=== PATIENT | female | born 1955 | race Native Hawaiian/Other Pacific Islander ===

== ENCOUNTER 2017-05-12 06:23 | Outpatient (CLI) | payer BC ==
[2017-05-12 07:05] LABS: PLATELET COUNT 242 K/uL (152-353)
[2017-05-12 09:11] LABS: POTASSIUM 3.9 mmol/L (3.6-5.2); SODIUM 137 mmol/L (136-145)
== END 2017-05-12 07:25 | disposition home or self-care (01) ==
LOC: LABW 06:23
PROVIDERS: Physician Assistant
DX: E78.4 Other hyperlipidemia (principal); I10 Essential (primary) hypertension
CPT/HCPCS: 36415; 80053; 80061; 83036; 84439; 84443; 85027

== ENCOUNTER 2017-07-26 15:42 | Outpatient (CLI) | payer BC | END 2017-07-26 19:01 | disposition home or self-care (01) | LOC: MAMMO 15:42 | DX: Z12.31 Encounter for screening mammogram for malignant neoplasm of breast (principal) ==

== ENCOUNTER 2018-09-19 06:18 | Outpatient (CLI) | payer BC ==
[2018-09-19 06:44] LABS: PLATELET COUNT 242 K/uL (152-353)
[2018-09-19 07:04] LABS: POTASSIUM 4.2 mmol/L (3.6-5.2)
== END 2018-09-19 20:25 | disposition home or self-care (01) ==
LOC: LABW 06:18
PROVIDERS: Physician Assistant
DX: E78.5 Hyperlipidemia, unspecified (principal); I10 Essential (primary) hypertension
CPT/HCPCS: 36415; 80053; 80061; 82306; 83036; 84439; 84443; 85027

== ENCOUNTER 2019-10-23 14:07 | Outpatient (CLI) | payer BC | END 2019-10-23 22:36 | disposition home or self-care (01) | LOC: MAMMO 14:07 | DX: Z12.31 Encounter for screening mammogram for malignant neoplasm of breast (principal) ==

== ENCOUNTER 2019-11-30 15:43 | Outpatient (CLI) | payer BC | END 2019-11-30 19:39 | disposition home or self-care (01) | LOC: RESP 15:43 | DX: R06.02 Shortness of breath (principal); I10 Essential (primary) hypertension | CPT/HCPCS: 93306 ==

== ENCOUNTER 2019-12-11 05:58 | Outpatient (CLI) | payer BC ==
[2019-12-11 06:28] LABS: PLATELET COUNT 274 K/uL (152-353)
[2019-12-11 06:47] LABS: POTASSIUM 3.8 mmol/L (3.6-5.2)
== END 2019-12-11 19:48 | disposition home or self-care (01) ==
LOC: LABW 05:58
PROVIDERS: Internal Medicine
DX: E78.5 Hyperlipidemia, unspecified (principal); R79.89 Other specified abnormal findings of blood chemistry; I10 Essential (primary) hypertension
CPT/HCPCS: 36415; 80053; 80061; 81000; 82306; 84439; 84443; 85027

== ENCOUNTER 2020-10-24 06:06 | Outpatient (CLI) | payer BC ==
[2020-10-24 06:57] LABS: PLATELET COUNT 269 K/uL (152-353)
== END 2020-10-24 21:07 | disposition home or self-care (01) ==
LOC: LAB 06:06
PROVIDERS: ATTEND Internal Medicine
DX: I10 Essential (primary) hypertension (principal); E78.5 Hyperlipidemia, unspecified; R79.89 Other specified abnormal findings of blood chemistry
CPT/HCPCS: 36415; 80053; 80061; 81000; 82306; 84439; 84443; 85027

== ENCOUNTER 2021-11-04 15:16 | Outpatient (CLI) | payer BC | END 2021-11-04 19:04 | disposition home or self-care (01) | LOC: RAD 15:16 | PROVIDERS: ATTEND Internal Medicine | DX: J40 Bronchitis, not specified as acute or chronic (principal) ==

== ENCOUNTER 2022-06-03 15:23 | Outpatient (CLI) | payer BC | END 2022-06-03 20:04 | disposition home or self-care (01) | LOC: MAMMO 15:23 | PROVIDERS: ATTEND Internal Medicine | DX: Z12.31 Encounter for screening mammogram for malignant neoplasm of breast (principal); I10 Essential (primary) hypertension ==

== ENCOUNTER 2023-07-07 08:51 | Outpatient (CLI) | payer BC ==
[2023-07-07 09:42] LABS: PLATELET COUNT 285 K/uL (152-353)
[2023-07-07 10:15] LABS: POTASSIUM 3.8 mmol/L (3.6-5.2)
== END 2023-07-07 19:48 | disposition home or self-care (01) ==
LOC: LABW 08:51
PROVIDERS: ATTEND Internal Medicine
DX: I50.9 Heart failure, unspecified (principal); Z79.899 Other long term (current) drug therapy
CPT/HCPCS: 36415; 80053; 83735; 83880; 84439; 84443; 85027